=== PATIENT | female | born 1950 | race Caucasian/White ===

== ENCOUNTER → 2017-06-25 | Day surgery (SDC) | payer MEDICARE, OTHER ==
[~2017-06-25] MED LIST: ATEN1TAB74 PO; BUPIVACAINE/EPINEPHRINE 0.25% PF 30 ML VIAL ONE; FEXO180 PO; FISH1000 PO; GLUC500C56 PO; HYDR-2768 PO; KETOROLAC TROMETHAMINE 30 MG/ML (IVP) VIAL IV PUSH ONE; MIDAZOLAM HCL 2 MG/2 ML VIAL ONE; ONDANSETRON HCL 4 MG/2 ML VIAL IV PUSH ONE; OXAP600 PO; PROPOFOL 200 MG/20 ML AMP IV ONE; ROSU20 PO; SYNT175T PO; ceFAZolin INJ 1,000 MG VIAL ONE
--- NOTE | 2017-06-25 15:54 | MP ---
cc: CARI BOB MD DATE OF SURGERY: 06/25/2017 PREOPERATIVE DIAGNOSIS Postmenopausal bleeding and thickened endometrial stripe. POSTOPERATIVE DIAGNOSIS Postmenopausal bleeding and thickened endometrial stripe. PROCEDURE PERFORMED Exam under anesthesia, hysteroscopy with MyoSure curettage and fractional D&C. SURGEON Cari Bob MD [employer] [place] staff. ANESTHESIA LMA. FLUIDS 450 mL. URINE OUTPUT 150 mL. ESTIMATED BLOOD LOSS 50 mL. ANTIBIOTICS Ancef preoperatively. DVT PROPHYLAXIS SCDs bilateral extremities. COUNTS Correct. SPECIMEN Endometrial ___. INTRAOPERATIVE FINDINGS Uterus on bimanual exam approximately 7 cm in size, no adnexal mass is appreciated. Cervix is normal with contours, maintained fornices, on the uterine sound, uterine cavity is noted to be 6-1/2 cm. On hysteroscopy there is a large approximately 2 cm x 3 cm mass on the anterior aspect of the uterus, possible fibroid and slightly thickened endometrium on the posterior aspect of the uterus. PROCEDURE IN DETAIL After reviewing informed consent the patient was taken to the operating room where general LMA was performed without complication. She was placed in dorsal lithotomy position in [facility] stirrups. The perineum was prepped and draped in normal sterile fashion. Exam under anesthesia was performed. See intraoperative findings. A bivalve speculum was placed in the vagina, a single-tooth tenaculum was placed at anterior lip of the cervix. The uterus was sounded, the uterus was gently dilated to accommodate the MyoSure hysteroscope. The MyoSure hysteroscope was then introduced and ___ anterior aspect of the uterus was noted. The MyoSure device was then introduced and this mass was resected and a global sampling was made of the remainder of the uterus. The MyoSure device and the scope was removed. A global sharp curettage was performed. Specimens were sent together. Marcaine 0.25% with epinephrine was used to perform a paracervical block for pain control. The patient was placed in dorsal supine position after tenaculum and speculum were removed. Anesthesia was reversed. The patient was taken to PACU under stable condition. Cari Bob MD PE/TLL /1:47 PM /3:17 PM
== END | disposition home or self-care (01) ==
LOC: ESDC 10:42
PROVIDERS: ATTEND Obstetrics & Gynecology
DX: N95.0 Postmenopausal bleeding (principal)
CPT/HCPCS: 00952; 58558; 88305; J0690; J1885; J2250; J2405; J3010